=== PATIENT | male | born 1960 | race African-American/Black ===

== ENCOUNTER 2021-08-14 12:50 | Inpatient (IN) | payer OTHER, SELFPAY ==
[2021-08-14] MEDS ORDERED: Morphine 4 MG/ML VIAL ONE (12:58)
[2021-08-14] MEDS ORDERED: Ondansetron PF 4 MG/2 ML Vial ONE (12:58)
[2021-08-14 14:07] LABS: #Basophils 0.1 10x3/uL (0.0-0.2); #Eosinphils 0.4 10x3/uL (0.0-0.5); #Monocytes 0.7 10x3/uL (0.0-1.1); #Neutrophils 6.2 10x3/uL (1.5-8.4); %Basophils 0.5 % (0.0-2.0); %Eosinophils 3.8 % (0.0-6.0); %Lymphocytes 21.9 % (18.0-47.0); %Monocytes 7.8 % (0.0-10.0); %Neutrophils 65.4 % (40.0-75.0); Hemoglobin 13.9 g/dL (13.5-17.5); Mean Corpuscular HGB CONC 32.5 g/dL (32.0-36.0); Mean Corpuscular Volume 89.2 fl (81.2-95.1); Mean Platelet Volume 11.6 fl (7.4-10.4); Platelet Count 226 10x3/uL (150-450); White Blood Cell (WBC) Count 9.5 10x3/uL (3.5-10.5)
[2021-08-14] MEDS ORDERED: Ketorolac Tromethamine 30 MG/ML VIAL ONE ×2 (14:09→14:42)
[2021-08-14 14:14] LABS: ALT (SGPT) 25 U/L (8-55); AST (SGOT) 31 U/L (5-34); Albumin 3.5 g/dL (3.5-5.0); Alkaline Phosphatase 99 U/L (40-110); Anion Gap 12 mmol/L (10-20); BUN (Urea Nitrogen) 16 mg/dL (8.4-25.7); Bilirubin, Total 0.8 mg/dL (0.2-1.2); CK (CPK) 1118 U/L (30-200); Calc. Creatinine Clearance 0 mL/min (70-130); Calcium 8.6 mg/dL (7.8-10.44); Carbon Dioxide 28 mmol/L (22-29); Chloride 102 mmol/L (98-107); Globulin 3.2 g/dL (2.4-3.5); Glucose 273 mg/dL (70-105); Lipase 10 U/L (8-78); Potassium 4.2 mmol/L (3.5-5.1); Protein, Total 6.7 g/dL (6.0-8.3); Sodium 138 mmol/L (136-145)
[2021-08-14 14:39] LABS: CKMB 11.9 ng/mL (0-6.6)
[2021-08-14] MEDS ORDERED: Aspirin Chewable 81 MG TAB ONE (14:41)
[2021-08-14] MEDS ORDERED: Ondansetron PF 4 MG/2 ML Vial IVP PRN (16:44)
[2021-08-14] MEDS ORDERED: Acetaminophen 325 MG TAB PO PRN (16:44)
[2021-08-14] MEDS ORDERED: Calcium Carbonate 500 MG ChewTAB PO PRN (16:44)
[2021-08-14] MEDS ORDERED: Morphine 2 MG/ML VIAL SLOW IVP PRN (16:49)
[2021-08-14] MEDS ORDERED: guaiFENesin/Codeine 200 mg/20 mg 10 ml Cup PO PRN (16:49)
[2021-08-14] MEDS ORDERED: Dextrose 5% in Water 1,000 ML IV PRN (16:50)
[2021-08-14] MEDS ORDERED: Dextrose 50% Abboject 50 ML SYRINGE SLOW IVP PRN (16:50)
[2021-08-14 16:52] LABS: PTT 24.5 sec (22.0-33.0); Prothrombin Time 11.1 sec (9.5-12.1)
[2021-08-14 17:15] LABS: Troponin I 0.075 ng/mL (< 0.028)
[2021-08-14] MEDS: Sodium Chloride 0.9% 1,000 ML IV SCH (20:20)
[2021-08-14] MEDS ORDERED: Benzonatate 100 MG CAP ONE (20:52)
[2021-08-14] MEDS ORDERED: Metoprolol Tartrate 25 MG TAB ONE (20:53)
[2021-08-14] MEDS: Benzonatate 100 MG CAP PO SCH (21:14)
[2021-08-14] MEDS: Metoprolol Tartrate 25 MG TAB PO SCH (21:14)
[2021-08-14 21:21] LABS: Troponin I 0.072 ng/mL (< 0.028)
[2021-08-15] MEDS: hydrALAZINE 20 MG/ML VIAL SLOW IVP PRN ×3 (00:01→17:24)
[2021-08-15 00:47] VITALS: BMI 37.5
[2021-08-15] MEDS: HYDROcodone/Acetaminophen 5/325 mg Tablet PO PRN ×4 (01:49→21:44)
[2021-08-15] MEDS: Sodium Chloride 0.9% 1,000 ML IV SCH ×3 (03:00→17:27)
[2021-08-15] MEDS: HumaLOG 300 UNITS/3 ML VIAL SC PRN ×4 (05:40→22:09)
[2021-08-15] MEDS: guaiFENesin/Codeine Phosphate 100 mg/10 mg 5 ml UD Cup PO PRN ×2 (05:42)
[2021-08-15 06:25] LABS: #Eosinphils 0.1 10x3/uL (0.0-0.5); #Monocytes 0.8 10x3/uL (0.0-1.1); #Neutrophils 7.3 10x3/uL (1.5-8.4); %Basophils 0.3 % (0.0-2.0); %Eosinophils 1.2 % (0.0-6.0); %Lymphocytes 16.4 % (18.0-47.0); %Monocytes 7.8 % (0.0-10.0); %Neutrophils 73.8 % (40.0-75.0); Hemoglobin 13.2 g/dL (13.5-17.5); Mean Corpuscular HGB CONC 33.1 g/dL (32.0-36.0); Mean Corpuscular Hemoglobin 29.3 pg (27.0-33.0); Mean Corpuscular Volume 88.5 fl (81.2-95.1); Mean Platelet Volume 11.4 fl (7.4-10.4); Platelet Count 188 10x3/uL (150-450); RBC Distribution Width 13.2 % (11.5-14.5); Red Blood Cell (RBC) Count 4.51 10x6/uL (4.32-5.72); White Blood Cell (WBC) Count 9.8 10x3/uL (3.5-10.5)
[2021-08-15 06:44] LABS: Anion Gap 12 mmol/L (10-20); BUN (Urea Nitrogen) 16 mg/dL (8.4-25.7); CK (CPK) 920 U/L (30-200); Calc. Creatinine Clearance 136 mL/min (70-130); Calcium 8.4 mg/dL (7.8-10.44); Carbon Dioxide 25 mmol/L (22-29); Cardiac Risk 4.9 (Less than 4.5); Chloride 103 mmol/L (98-107); Cholesterol 181 mg/dl (< 200 Desired); Glucose 272 mg/dL (70-105); HDL Cholesterol 37 mg/dL (>60 Neg Risk); LDL Cholesterol, Calculated 123 mg/dL; Sodium 136 mmol/L (136-145); Triglycerides 107 mg/dL (Less than 150)
[2021-08-15] MEDS: Metoprolol Tartrate 25 MG TAB PO SCH (08:01)
[2021-08-15] MEDS: Cholecalciferol (Vitamin D3) 400 UNITS TAB PO SCH (08:02)
[2021-08-15] MEDS: Ascorbic Acid 500 mg Chewable Tablet PO SCH (08:02)
[2021-08-15] MEDS: Zinc Sulfate 220 MG CAP PO SCH (08:02)
[2021-08-15] MEDS: Benzonatate 100 MG CAP PO SCH ×3 (08:02→21:35)
[2021-08-15] MEDS ORDERED: Amlodipine 5 MG TAB PO SCH (11:00)
[2021-08-15] MEDS: guaiFENesin/Codeine Phosphate 100 mg/10 mg 5 ml UD Cup PO SCH ×3 (11:46→21:38)
[2021-08-15] MEDS ORDERED: Triamcinolone 0.025 % Cream 15GM TUBE TOP SCH ×4 (13:45→21:00)
[2021-08-15] MEDS ORDERED: Ventolin HFA Inhaler 60 PUFF INHALER INH SCH (14:30)
[2021-08-15 15:39] LABS: SARS-CoV-2 PCR by NAA Not Detected (NotDetected)
[2021-08-15] MEDS ORDERED: Morphine 4 MG/ML VIAL ONE (19:31)
[2021-08-15] MEDS ORDERED: Lisinopril 10 MG TAB PO SCH (21:00)
[2021-08-15] MEDS: Amlodipine 5 MG TAB PO SCH (21:35)
[2021-08-15] MEDS: Lisinopril 10 MG TAB PO SCH (21:36)
[2021-08-15] MEDS: Metoprolol Tartrate 50 MG TAB PO SCH (21:36)
[2021-08-16] MEDS: Morphine 4 MG/ML VIAL SLOW IVP PRN ×2 (01:16→04:31)
[2021-08-16] MEDS: Ventolin HFA Inhaler 60 PUFF INHALER INH SCH ×6 (03:35→22:30)
[2021-08-16] MEDS: guaiFENesin/Codeine Phosphate 100 mg/10 mg 5 ml UD Cup PO SCH ×6 (04:30→20:20)
[2021-08-16] MEDS: HYDROcodone/Acetaminophen 5/325 mg Tablet PO PRN ×2 (04:32→18:25)
[2021-08-16 05:01] LABS: Anion Gap 12 mmol/L (10-20); BUN (Urea Nitrogen) 16 mg/dL (8.4-25.7); CK (CPK) 1418 U/L (30-200); Calc. Creatinine Clearance 142 mL/min (70-130); Calcium 8.4 mg/dL (7.8-10.44); Carbon Dioxide 22 mmol/L (22-29); Chloride 107 mmol/L (98-107); Glucose 233 mg/dL (70-105); Sodium 137 mmol/L (136-145)
[2021-08-16 05:32] LABS: #Eosinphils 0.2 10x3/uL (0.0-0.5); #Monocytes 0.8 10x3/uL (0.0-1.1); #Neutrophils 6.6 10x3/uL (1.5-8.4); %Basophils 0.3 % (0.0-2.0); %Eosinophils 1.7 % (0.0-6.0); %Lymphocytes 18.6 % (18.0-47.0); %Monocytes 8.6 % (0.0-10.0); %Neutrophils 70.3 % (40.0-75.0); Hemoglobin 12.7 g/dL (13.5-17.5); Mean Corpuscular Hemoglobin 28.5 pg (27.0-33.0); Mean Corpuscular Volume 89.2 fl (81.2-95.1); Mean Platelet Volume 10.9 fl (7.4-10.4); Platelet Count 221 10x3/uL (150-450); Red Blood Cell (RBC) Count 4.45 10x6/uL (4.32-5.72); White Blood Cell (WBC) Count 9.4 10x3/uL (3.5-10.5)
[2021-08-16] MEDS: HumaLOG 300 UNITS/3 ML VIAL SC PRN ×4 (06:00→20:11)
[2021-08-16] MEDS: Sodium Chloride 0.9% 1,000 ML IV SCH ×3 (06:00→17:33)
[2021-08-16] MEDS: hydrALAZINE 20 MG/ML VIAL SLOW IVP PRN ×3 (06:05→18:15)
[2021-08-16] MEDS: Cholecalciferol (Vitamin D3) 400 UNITS TAB PO SCH (08:46)
[2021-08-16] MEDS: Ascorbic Acid 500 mg Chewable Tablet PO SCH (08:46)
[2021-08-16] MEDS: Zinc Sulfate 220 MG CAP PO SCH (08:46)
[2021-08-16] MEDS: Metoprolol Tartrate 50 MG TAB PO SCH ×2 (08:47→19:48)
[2021-08-16] MEDS: Benzonatate 100 MG CAP PO SCH ×3 (08:47→19:48)
[2021-08-16] MEDS: Lisinopril 10 MG TAB PO SCH ×2 (08:47→19:48)
[2021-08-16] MEDS: Amlodipine 5 MG TAB PO SCH ×2 (08:50→19:47)
[2021-08-16] MEDS ORDERED: Amlodipine 5 MG TAB PO SCH (09:00)
[2021-08-16] MEDS: cefTRIAXone\\ROCEPHIN 1 GM in Sodium Chloride 0.9% 100 ML IVPB SCH (19:46)
[2021-08-16] MEDS: hydrALAZINE 25 MG TAB PO SCH (19:48)
[2021-08-16] MEDS ORDERED: Doxycycline 100 MG in Syringe 0 ML IVPB SCH (21:00)
[2021-08-17] MEDS: guaiFENesin/Codeine Phosphate 100 mg/10 mg 5 ml UD Cup PO SCH ×6 (02:08→23:28)
[2021-08-17] MEDS: Sodium Chloride 0.9% 1,000 ML IV SCH ×3 (02:08→18:41)
[2021-08-17] MEDS: HYDROcodone/Acetaminophen 5/325 mg Tablet PO PRN ×2 (02:08→20:56)
[2021-08-17] MEDS: Ventolin HFA Inhaler 60 PUFF INHALER INH SCH ×6 (02:30→22:30)
[2021-08-17 06:01] LABS: #Eosinphils 0.1 10x3/uL (0.0-0.5); #Neutrophils 7.9 10x3/uL (1.5-8.4); %Basophils 0.3 % (0.0-2.0); %Eosinophils 0.9 % (0.0-6.0); %Monocytes 9.4 % (0.0-10.0); %Neutrophils 74.6 % (40.0-75.0); Hemoglobin 12.8 g/dL (13.5-17.5); Mean Corpuscular HGB CONC 32.2 g/dL (32.0-36.0); Mean Corpuscular Hemoglobin 28.7 pg (27.0-33.0); Mean Corpuscular Volume 89.2 fl (81.2-95.1); Mean Platelet Volume 11.5 fl (7.4-10.4); Platelet Count 232 10x3/uL (150-450); RBC Distribution Width 13.5 % (11.5-14.5); Red Blood Cell (RBC) Count 4.46 10x6/uL (4.32-5.72); White Blood Cell (WBC) Count 10.5 10x3/uL (3.5-10.5)
[2021-08-17 06:08] LABS: Anion Gap 12 mmol/L (10-20); BUN (Urea Nitrogen) 18 mg/dL (8.4-25.7); CK (CPK) 1273 U/L (30-200); CRP (Inflammatory) 3.64 mg/dL (= or < 0.5); Calc. Creatinine Clearance 130 mL/min (70-130); Calcium 8.4 mg/dL (7.8-10.44); Carbon Dioxide 25 mmol/L (22-29); Chloride 104 mmol/L (98-107); Glucose 232 mg/dL (70-105); Potassium 3.8 mmol/L (3.5-5.1); Sodium 137 mmol/L (136-145)
[2021-08-17] MEDS: HumaLOG 300 UNITS/3 ML VIAL SC PRN ×4 (06:13→20:58)
[2021-08-17] MEDS: Metoprolol Tartrate 50 MG TAB PO SCH ×2 (06:17→20:55)
[2021-08-17] MEDS: Morphine 4 MG/ML VIAL SLOW IVP PRN ×2 (06:22→23:29)
[2021-08-17] MEDS ORDERED: Furosemide 40 MG/4 ML VIAL SLOW IVP SCH (09:15)
[2021-08-17] MEDS ORDERED: Lidocaine 5% Patch TD SCH ×2 (09:30→11:30)
[2021-08-17] MEDS: Cholecalciferol (Vitamin D3) 400 UNITS TAB PO SCH (10:47)
[2021-08-17] MEDS: Zinc Sulfate 220 MG CAP PO SCH (10:47)
[2021-08-17] MEDS: Lisinopril 10 MG TAB PO SCH ×2 (10:47→20:55)
[2021-08-17] MEDS: Benzonatate 100 MG CAP PO SCH ×3 (10:48→20:25)
[2021-08-17] MEDS: hydrALAZINE 25 MG TAB PO SCH ×3 (10:48→20:55)
[2021-08-17] MEDS: Ascorbic Acid 500 mg Chewable Tablet PO SCH (10:48)
[2021-08-17] MEDS: Amlodipine 5 MG TAB PO SCH ×2 (10:50→20:56)
[2021-08-17] MEDS: tiZANidine HCl 4 MG TAB PO SCH ×2 (15:36→20:26)
[2021-08-17 18:14] LABS: Strep pneumo Urine Ag NEGATIVE (NEGATIVE)
[2021-08-17] MEDS: cefTRIAXone\\ROCEPHIN 1 GM in Sodium Chloride 0.9% 100 ML IVPB SCH (20:24)
[2021-08-17] MEDS: Senokot S 8.6-50 MG TAB PO PRN (20:25)
[2021-08-18] MEDS: Sodium Chloride 0.9% 1,000 ML IV SCH ×2 (00:07→09:03)
[2021-08-18] MEDS: guaiFENesin/Codeine Phosphate 100 mg/10 mg 5 ml UD Cup PO SCH ×6 (01:37→23:14)
[2021-08-18] MEDS: Ventolin HFA Inhaler 60 PUFF INHALER INH SCH ×8 (03:10→21:45)
[2021-08-18] MEDS: HumaLOG 300 UNITS/3 ML VIAL SC PRN ×3 (06:10→18:20)
[2021-08-18] MEDS ORDERED: Fentanyl 100 MCG/2 ML VIAL ONE (06:29)
[2021-08-18] MEDS ORDERED: PROPOFOL 0 ML ONE (06:29)
[2021-08-18] MEDS ORDERED: Ondansetron PF 4 MG/2 ML Vial ONE (06:30)
[2021-08-18] MEDS ORDERED: Dexamethasone 20 MG/5 ML VIAL ONE (06:30)
[2021-08-18 07:02] LABS: #Eosinphils 0.2 10x3/uL (0.0-0.5); #Monocytes 1.1 10x3/uL (0.0-1.1); #Neutrophils 7.6 10x3/uL (1.5-8.4); %Basophils 0.3 % (0.0-2.0); %Eosinophils 1.7 % (0.0-6.0); %Lymphocytes 17.9 % (18.0-47.0); %Monocytes 10.2 % (0.0-10.0); %Neutrophils 69.4 % (40.0-75.0); Hemoglobin 12.6 g/dL (13.5-17.5); Mean Corpuscular Volume 90.6 fl (81.2-95.1); Mean Platelet Volume 11.5 fl (7.4-10.4); Platelet Count 231 10x3/uL (150-450); RBC Distribution Width 13.4 % (11.5-14.5); Red Blood Cell (RBC) Count 4.35 10x6/uL (4.32-5.72)
[2021-08-18 07:30] LABS: Anion Gap 12 mmol/L (10-20); BUN (Urea Nitrogen) 22 mg/dL (8.4-25.7); CK (CPK) 854 U/L (30-200); Calc. Creatinine Clearance 125 mL/min (70-130); Calcium 8.4 mg/dL (7.8-10.44); Carbon Dioxide 25 mmol/L (22-29); Chloride 104 mmol/L (98-107); Glucose 230 mg/dL (70-105); Potassium 3.7 mmol/L (3.5-5.1); Sodium 137 mmol/L (136-145)
[2021-08-18] MEDS: Cholecalciferol (Vitamin D3) 400 UNITS TAB PO SCH (09:01)
[2021-08-18] MEDS: Zinc Sulfate 220 MG CAP PO SCH (09:01)
[2021-08-18] MEDS: hydrALAZINE 25 MG TAB PO SCH ×3 (09:01→23:14)
[2021-08-18] MEDS: Metoprolol Tartrate 50 MG TAB PO SCH ×2 (09:01→20:12)
[2021-08-18] MEDS: Benzonatate 100 MG CAP PO SCH ×3 (09:01→23:14)
[2021-08-18] MEDS: Ascorbic Acid 500 mg Chewable Tablet PO SCH (09:01)
[2021-08-18] MEDS: Amlodipine 5 MG TAB PO SCH ×2 (09:02→20:13)
[2021-08-18] MEDS: Lisinopril 10 MG TAB PO SCH ×2 (09:02→20:12)
[2021-08-18] MEDS: tiZANidine HCl 4 MG TAB PO SCH ×2 (09:02→20:12)
[2021-08-18] MEDS: Lidocaine 5% Patch TD SCH (09:03)
[2021-08-18] MEDS: Senokot S 8.6-50 MG TAB PO PRN (09:28)
[2021-08-18] MEDS: Morphine 4 MG/ML VIAL SLOW IVP PRN (09:28)
[2021-08-18] MEDS ORDERED: Furosemide 40 MG/4 ML VIAL SLOW IVP SCH (11:00)
[2021-08-18] MEDS ORDERED: HYDROcodone/Chlorphen Polis 5 ML UDCUP PO SCH (11:00)
[2021-08-18] MEDS: hydrALAZINE 20 MG/ML VIAL SLOW IVP PRN (12:45)
[2021-08-18] MEDS: cefTRIAXone\\ROCEPHIN 1 GM in Sodium Chloride 0.9% 100 ML IVPB SCH (20:11)
[2021-08-19] MEDS: guaiFENesin/Codeine Phosphate 100 mg/10 mg 5 ml UD Cup PO SCH ×6 (01:37→21:47)
[2021-08-19] MEDS: Ventolin HFA Inhaler 60 PUFF INHALER INH SCH ×6 (03:22→23:53)
[2021-08-19] MEDS: HumaLOG 300 UNITS/3 ML VIAL SC PRN ×4 (06:05→21:14)
[2021-08-19] MEDS: Zinc Sulfate 220 MG CAP PO SCH (08:41)
[2021-08-19] MEDS: Lidocaine 5% Patch TD SCH (08:41)
[2021-08-19] MEDS: Benzonatate 100 MG CAP PO SCH ×3 (08:41→20:33)
[2021-08-19] MEDS: Ascorbic Acid 500 mg Chewable Tablet PO SCH (08:42)
[2021-08-19] MEDS: hydrALAZINE 25 MG TAB PO SCH ×3 (08:42→20:34)
[2021-08-19] MEDS: Cholecalciferol (Vitamin D3) 400 UNITS TAB PO SCH (08:42)
[2021-08-19] MEDS: Amlodipine 5 MG TAB PO SCH ×2 (08:42→20:33)
[2021-08-19] MEDS: Metoprolol Tartrate 50 MG TAB PO SCH ×2 (08:42→20:33)
[2021-08-19] MEDS: Lisinopril 10 MG TAB PO SCH ×2 (08:42→20:34)
[2021-08-19] MEDS: tiZANidine HCl 4 MG TAB PO SCH ×2 (08:42→20:34)
[2021-08-19] MEDS: cefTRIAXone\\ROCEPHIN 1 GM in Sodium Chloride 0.9% 100 ML IVPB SCH (20:32)
[2021-08-20] MEDS: Ventolin HFA Inhaler 60 PUFF INHALER INH SCH ×6 (01:27→23:46)
[2021-08-20] MEDS: guaiFENesin/Codeine Phosphate 100 mg/10 mg 5 ml UD Cup PO SCH ×6 (02:07→21:11)
[2021-08-20] MEDS: HumaLOG 300 UNITS/3 ML VIAL SC PRN ×3 (04:52→21:52)
[2021-08-20] MEDS: Lidocaine 5% Patch TD SCH (08:25)
[2021-08-20] MEDS: Ascorbic Acid 500 mg Chewable Tablet PO SCH (08:26)
[2021-08-20] MEDS: Zinc Sulfate 220 MG CAP PO SCH (08:26)
[2021-08-20] MEDS: hydrALAZINE 25 MG TAB PO SCH ×3 (08:26→21:51)
[2021-08-20] MEDS: Benzonatate 100 MG CAP PO SCH ×3 (08:26→21:10)
[2021-08-20] MEDS: Lisinopril 10 MG TAB PO SCH ×2 (08:26→21:51)
[2021-08-20] MEDS: Amlodipine 5 MG TAB PO SCH ×2 (08:27→21:51)
[2021-08-20] MEDS: Metoprolol Tartrate 50 MG TAB PO SCH ×2 (08:27→21:51)
[2021-08-20] MEDS: Cholecalciferol (Vitamin D3) 400 UNITS TAB PO SCH (08:27)
[2021-08-20] MEDS: tiZANidine HCl 4 MG TAB PO SCH ×2 (08:27→21:11)
[2021-08-20] MEDS: Furosemide 100 MG/10 ML VIAL SLOW IVP SCH ×2 (15:19→15:57)
[2021-08-20] MEDS ORDERED: Furosemide 20 MG TAB PO SCH (16:00)
[2021-08-20] MEDS ORDERED: Zolpidem Tartrate 5 MG TAB PO PRN (21:10)
[2021-08-20] MEDS: Doxycycline 100 MG CAP PO SCH (21:16)
[2021-08-20 22:37] LABS: L.pneumophilia Abs <0.91 OD ratio (0.00-0.90); Mycoplasma pneumoniae IgG AB 162 U/mL (0-99); Mycoplasma pneumoniae IgM AB Less than 770 U/mL (0-769)
[2021-08-21] MEDS: guaiFENesin/Codeine Phosphate 100 mg/10 mg 5 ml UD Cup PO SCH ×6 (01:44→22:26)
[2021-08-21] MEDS: Ventolin HFA Inhaler 60 PUFF INHALER INH SCH ×6 (02:15→22:39)
[2021-08-21 05:00] LABS: Anion Gap 11 mmol/L (10-20); BUN (Urea Nitrogen) 21 mg/dL (8.4-25.7); Calc. Creatinine Clearance 134 mL/min (70-130); Calcium 8.8 mg/dL (7.8-10.44); Carbon Dioxide 28 mmol/L (22-29); Chloride 102 mmol/L (98-107); Glucose 242 mg/dL (70-105); Magnesium 2.1 mg/dL (1.6-2.6); Sodium 137 mmol/L (136-145)
[2021-08-21] MEDS: HumaLOG 300 UNITS/3 ML VIAL SC PRN ×4 (05:50→20:43)
[2021-08-21] MEDS: Benzonatate 100 MG CAP PO SCH ×3 (09:20→20:08)
[2021-08-21] MEDS: Amlodipine 5 MG TAB PO SCH ×2 (09:20→20:41)
[2021-08-21] MEDS: tiZANidine HCl 4 MG TAB PO SCH ×2 (09:20→20:09)
[2021-08-21] MEDS: Metoprolol Tartrate 50 MG TAB PO SCH ×2 (09:21→20:41)
[2021-08-21] MEDS: Lidocaine 5% Patch TD SCH (09:21)
[2021-08-21] MEDS: Doxycycline 100 MG CAP PO SCH ×2 (09:22→20:09)
[2021-08-21] MEDS: Ascorbic Acid 500 mg Chewable Tablet PO SCH (09:22)
[2021-08-21] MEDS: Furosemide 40 MG TAB PO SCH ×2 (09:22→15:00)
[2021-08-21] MEDS: Lisinopril 10 MG TAB PO SCH ×2 (09:22→20:41)
[2021-08-21] MEDS: hydrALAZINE 25 MG TAB PO SCH ×3 (09:23→20:40)
[2021-08-21] MEDS: Cholecalciferol (Vitamin D3) 400 UNITS TAB PO SCH (10:14)
[2021-08-21] MEDS: Zinc Sulfate 220 MG CAP PO SCH (10:16)
[2021-08-22] MEDS: guaiFENesin/Codeine Phosphate 100 mg/10 mg 5 ml UD Cup PO SCH ×6 (02:02→22:00)
[2021-08-22] MEDS: Ventolin HFA Inhaler 60 PUFF INHALER INH SCH ×4 (03:36→23:31)
[2021-08-22] MEDS: HumaLOG 300 UNITS/3 ML VIAL SC PRN ×4 (07:02→20:10)
[2021-08-22] MEDS: hydrALAZINE 25 MG TAB PO SCH ×3 (08:49→20:08)
[2021-08-22] MEDS: Ascorbic Acid 500 mg Chewable Tablet PO SCH (08:50)
[2021-08-22] MEDS: Furosemide 40 MG TAB PO SCH ×2 (08:50→14:41)
[2021-08-22] MEDS: tiZANidine HCl 4 MG TAB PO SCH ×2 (08:50→20:09)
[2021-08-22] MEDS: Zinc Sulfate 220 MG CAP PO SCH (08:50)
[2021-08-22] MEDS: Lisinopril 10 MG TAB PO SCH ×2 (08:50→20:08)
[2021-08-22] MEDS: Benzonatate 100 MG CAP PO SCH ×3 (08:50→20:08)
[2021-08-22] MEDS: Metoprolol Tartrate 50 MG TAB PO SCH ×2 (08:50→20:08)
[2021-08-22] MEDS: Cholecalciferol (Vitamin D3) 400 UNITS TAB PO SCH (08:50)
[2021-08-22] MEDS: Amlodipine 5 MG TAB PO SCH ×2 (08:50→20:09)
[2021-08-22] MEDS: Lidocaine 5% Patch TD SCH ×2 (08:51→09:10)
[2021-08-22] MEDS: Doxycycline 100 MG CAP PO SCH ×2 (08:53→20:09)
[2021-08-22] MEDS ORDERED: Potassium Chloride 20 MEQ TAB PO SCH (14:00)
[2021-08-22] MEDS ORDERED: Furosemide 100 MG/10 ML VIAL SLOW IVP SCH (14:00)
[2021-08-22] MEDS ORDERED: Furosemide 40 MG TAB PO SCH (16:00)
[2021-08-23] MEDS: guaiFENesin/Codeine Phosphate 100 mg/10 mg 5 ml UD Cup PO SCH ×6 (02:00→21:22)
[2021-08-23] MEDS: Ventolin HFA Inhaler 60 PUFF INHALER INH SCH ×6 (02:21→23:00)
[2021-08-23] MEDS: HumaLOG 300 UNITS/3 ML VIAL SC PRN ×2 (04:49→21:28)
[2021-08-23 05:37] LABS: Anion Gap 13 mmol/L (10-20); BUN (Urea Nitrogen) 21 mg/dL (8.4-25.7); Calc. Creatinine Clearance 120 mL/min (70-130); Calcium 8.9 mg/dL (7.8-10.44); Carbon Dioxide 29 mmol/L (22-29); Chloride 99 mmol/L (98-107); Glucose 246 mg/dL (70-105); Potassium 4.2 mmol/L (3.5-5.1); Sodium 137 mmol/L (136-145)
[2021-08-23] MEDS: hydrALAZINE 20 MG/ML VIAL SLOW IVP PRN (05:43)
[2021-08-23] MEDS ORDERED: Furosemide 40 MG/4 ML VIAL SLOW IVP SCH ×3 (06:00→18:00)
[2021-08-23] MEDS ORDERED: Ventolin HFA Inhaler 60 PUFF INHALER INH SCH (07:00)
[2021-08-23] MEDS: Lidocaine 5% Patch TD SCH (07:57)
[2021-08-23] MEDS: Amlodipine 5 MG TAB PO SCH ×2 (07:57→21:19)
[2021-08-23] MEDS: Lisinopril 10 MG TAB PO SCH ×2 (07:57→21:20)
[2021-08-23] MEDS: hydrALAZINE 25 MG TAB PO SCH ×3 (07:57→21:21)
[2021-08-23] MEDS: Furosemide 40 MG TAB PO SCH ×2 (07:57→15:32)
[2021-08-23] MEDS: Metoprolol Tartrate 50 MG TAB PO SCH ×2 (07:58→21:19)
[2021-08-23] MEDS: Zinc Sulfate 220 MG CAP PO SCH (07:58)
[2021-08-23] MEDS: tiZANidine HCl 4 MG TAB PO SCH ×2 (07:58→21:35)
[2021-08-23] MEDS: Cholecalciferol (Vitamin D3) 400 UNITS TAB PO SCH (07:58)
[2021-08-23] MEDS: Ascorbic Acid 500 mg Chewable Tablet PO SCH (07:58)
[2021-08-23] MEDS: Benzonatate 100 MG CAP PO SCH ×3 (07:58→21:20)
[2021-08-23] MEDS: Doxycycline 100 MG CAP PO SCH ×2 (08:07→21:21)
[2021-08-23 21:54] LABS: SARS-CoV-2 PCR by NAA Not Detected (NotDetected)
[2021-08-24] MEDS: guaiFENesin/Codeine Phosphate 100 mg/10 mg 5 ml UD Cup PO SCH ×6 (02:16→22:44)
[2021-08-24] MEDS: Ventolin HFA Inhaler 60 PUFF INHALER INH SCH ×5 (03:11→20:00)
[2021-08-24] MEDS: HumaLOG 300 UNITS/3 ML VIAL SC PRN ×4 (06:14→20:38)
[2021-08-24] MEDS: Lidocaine 5% Patch TD SCH (07:51)
[2021-08-24] MEDS: tiZANidine HCl 4 MG TAB PO SCH ×2 (07:52→20:15)
[2021-08-24] MEDS: Benzonatate 100 MG CAP PO SCH ×3 (07:52→20:15)
[2021-08-24] MEDS: Lisinopril 10 MG TAB PO SCH ×2 (07:52→20:16)
[2021-08-24] MEDS: Furosemide 40 MG TAB PO SCH ×2 (07:52→13:12)
[2021-08-24] MEDS: hydrALAZINE 25 MG TAB PO SCH ×3 (07:52→20:15)
[2021-08-24] MEDS: Ascorbic Acid 500 mg Chewable Tablet PO SCH (07:53)
[2021-08-24] MEDS: Zinc Sulfate 220 MG CAP PO SCH (07:53)
[2021-08-24] MEDS: Doxycycline 100 MG CAP PO SCH ×2 (07:53→20:15)
[2021-08-24] MEDS: Amlodipine 5 MG TAB PO SCH ×2 (07:53→20:16)
[2021-08-24] MEDS: Metoprolol Tartrate 50 MG TAB PO SCH ×2 (07:53→20:16)
[2021-08-24] MEDS: Cholecalciferol (Vitamin D3) 400 UNITS TAB PO SCH (07:53)
[2021-08-24] MEDS ORDERED: Furosemide 40 MG/4 ML VIAL SLOW IVP SCH (12:45)
[2021-08-24 20:10] LABS: Hemoglobin A1c 9.7 % (4.0-6.0)
[2021-08-24] MEDS ORDERED: Lantus 1000 UNITS/10 ML VIAL SC SCH (21:00)
[2021-08-25] MEDS: Ventolin HFA Inhaler 60 PUFF INHALER INH SCH ×3 (00:10→11:43)
[2021-08-25] MEDS: guaiFENesin/Codeine Phosphate 100 mg/10 mg 5 ml UD Cup PO SCH ×4 (02:31→07:45)
[2021-08-25 04:50] LABS: #Eosinphils 0.3 10x3/uL (0.0-0.5); #Monocytes 0.8 10x3/uL (0.0-1.1); #Neutrophils 6.1 10x3/uL (1.5-8.4); %Basophils 0.3 % (0.0-2.0); %Eosinophils 2.7 % (0.0-6.0); %Lymphocytes 23.4 % (18.0-47.0); %Monocytes 8.2 % (0.0-10.0); %Neutrophils 65.1 % (40.0-75.0); Hemoglobin 11.9 g/dL (13.5-17.5); Mean Corpuscular HGB CONC 32.5 g/dL (32.0-36.0); Mean Corpuscular Hemoglobin 28.7 pg (27.0-33.0); Mean Corpuscular Volume 88.2 fl (81.2-95.1); Mean Platelet Volume 11.2 fl (7.4-10.4); Platelet Count 245 10x3/uL (150-450); Red Blood Cell (RBC) Count 4.15 10x6/uL (4.32-5.72); White Blood Cell (WBC) Count 9.3 10x3/uL (3.5-10.5)
[2021-08-25 04:55] LABS: Anion Gap 12 mmol/L (10-20); BUN (Urea Nitrogen) 22 mg/dL (8.4-25.7); Calc. Creatinine Clearance 121 mL/min (70-130); Calcium 8.5 mg/dL (7.8-10.44); Carbon Dioxide 32 mmol/L (22-29); Chloride 97 mmol/L (98-107); Glucose 306 mg/dL (70-105); Potassium 3.9 mmol/L (3.5-5.1); Sodium 137 mmol/L (136-145)
[2021-08-25] MEDS: HumaLOG 300 UNITS/3 ML VIAL SC PRN (05:04)
[2021-08-25] MEDS: tiZANidine HCl 4 MG TAB PO SCH (07:45)
[2021-08-25] MEDS: Doxycycline 100 MG CAP PO SCH (07:45)
[2021-08-25] MEDS: Lidocaine 5% Patch TD SCH (07:45)
[2021-08-25] MEDS: Metoprolol Tartrate 50 MG TAB PO SCH (07:45)
[2021-08-25] MEDS: Zinc Sulfate 220 MG CAP PO SCH (07:45)
[2021-08-25] MEDS: Furosemide 40 MG TAB PO SCH (07:45)
[2021-08-25] MEDS: Benzonatate 100 MG CAP PO SCH (07:45)
[2021-08-25] MEDS: Amlodipine 5 MG TAB PO SCH (07:46)
[2021-08-25] MEDS: Cholecalciferol (Vitamin D3) 400 UNITS TAB PO SCH (07:46)
[2021-08-25] MEDS: Lisinopril 10 MG TAB PO SCH (07:46)
[2021-08-25] MEDS: Ascorbic Acid 500 mg Chewable Tablet PO SCH (07:46)
[2021-08-25] MEDS: hydrALAZINE 25 MG TAB PO SCH (07:46)
[2021-08-25 13:55] VITALS: BP 164/78; TEMP 98.2
== END 2021-08-25 13:00 | disposition home or self-care (01) | DRG 558 ==
LOC: CSHERS 12:50 → CSHERHOLD 17:05 → CSHTELE 23:20 → OBSVTOIN 08-16 15:59
PROVIDERS: ADMIT Family Medicine; ATTEND Internal Medicine
PROC: 8E0ZXY6 Isolation (ICD-10-PCS; principal; 2021-08-16)
DX: M62.82 Rhabdomyolysis (principal); R04.2 Hemoptysis; M79.81 Nontraumatic hematoma of soft tissue; E11.9 Type 2 diabetes mellitus without complications; I10 Essential (primary) hypertension; E66.9 Obesity, unspecified; I16.0 Hypertensive urgency; R77.8 Other specified abnormalities of plasma proteins; Z20.822 Contact with and (suspected) exposure to COVID-19; Z91.018 Allergy to other foods; Z68.37 Body mass index [BMI] 37.0-37.9, adult
CPT/HCPCS: 36415; 36416; 71045; 71275; 74176; 80048; 80053; 80061; 82550; 82553; 83036; 83605; 83690; 83735; 84145; 84484; 85025; 85610; 85730; 86140; 86713; 87449; 93005; 93306; 93970; 96374; 96375; 96376; G0378; J0360; J0696; J1100; J1815; J1885; J1940; J2270; J2405; J2704; J3010; J3490; J7050; U0003; U0005